=== PATIENT | female | born 1960 | race Caucasian/White ===

== ENCOUNTER 2024-03-26 09:47 | Outpatient (CLI) | payer MEDICAID, SELFPAY ==
--- NOTE | 2024-03-26 09:45 | RT.EKG_ITS ---
APPROVED REPORT Exam: Resting ECG Reason for Exam: Malignant neoplasm of central portion of left breast Patient Location: O HR:72 bpm ECG Measurements Heart Rate 72 AXIS RI 150 P 83 QRSd 93 QRS 76 QT 415 T 48 QTc 455 Conclusion Sinus rhythm...normal P axis, V-rate 50- 99 Anteroseptal infarct, age indeterminate...Q >35mS, T neg, V1-V2
== END 2024-03-26 09:48 | disposition home or self-care (01) ==
PROVIDERS: Visit Provider Physician Assistant Medical
DX: I25.2 Old myocardial infarction (principal)
CPT/HCPCS: 93005; 93010

== ENCOUNTER → 2024-04-01 01:32 | Outpatient (CLI) | payer MEDICAID, SELFPAY ==
--- NOTE | 2024-04-01 | DI.MRI_ITS ---
Exam(s) MR BRAIN WO/W EXAM: MR BRAIN WO/W CLINICAL HISTORY: CANCER OF CENTRAL PORTION OF L BREAST C50.112, diplopia, H53.2 TECHNIQUE: Multiplanar multisequence MRI of the brain was performed. Both noninfused and contrast i nfused sequences were performed. IV Contrast injected was 13 cc Dotarem. COMPARISON: No exams were available for comparison FINDINGS: CEREBRAL PARENCHYMA: There is advanced bilateral metastatic osseous disease as described below and there is intracranial e xtension bilaterally with extensive white matter edema in the left frontal and right temporal lobes. On the right side there is extensive metastatic involvement of the greater wing of the right sphenoid bone which exhibits contiguous extension into the right cavernous sinus and right basiocciput/clivus as well as encroachment upon the lateral aspect of the right orbit and right orbital apex. There is enhancement-extension into the right cranial fossa with what appears to be direct invasion of the ri ght temporal lobe and there is prominent vasogenic edema in the right temporal lobe evident, this be vasogenic edema extending up into the right parietal lobe. There is associated 4 mm leftward shift o f midline structures. There is also inferior extension into the right infratemporal fossa involving the muscles of mastication. In addition, there is a branching structure in the anterior aspect of the right temporal lobe which i s most probably a developmental venous anomaly. In the left frontal region there is a large expansile bone lesion in the left frontal bone with both out toward an inward extension into the left scalp as well as into the left frontal lobe region with both epidural and intra-axial extension. Adjacent to this in the left frontal lobe there is a 2 x 1. 8 by 2.8 cm area exhibiting fluid fluid level on T2 images consistent with hematoma. There is adjace nt extensive vasogenic edema in the left frontal lobe with significant mass packed upon the left fron roberto horn and approximately 5-6 mm shift of midline structures. There are no focal findings in the posterior fossa nor within the cara, and midbrain. PITUITARY GLAND: No mass nor parasellar abnormality. No obvious abnormality in the cavernous sinuses. FLOW VOIDS: The expected flow void are noted. No evidence of obvious aneurysm PARANASAL SINUSES: Paranasal sinuses are clear. Frontal sinuses are not developed. There is mild si gnal abnormality in the right mastoid air cells. IMPRESSION: Advanced bilateral metastatic disease both sides of the skull/brain as described above.. There is os seous metastases involving the right sphenoid bone and basiocciput with extension into the lateral as pect of the right orbit and infratemporal fossa. There is also direct contiguous involvement of the right temporal lobe with abundant vasogenic white matter edema. On the left side the expansile left frontal skull lesion exhibits both extracranial and intracranial extension including epidural and intraparenchymal contiguous brain involvement as well as an adjacent hematoma in the left frontal lobe. There is also abundant vasogenic edema on the left side. There is shift of midline structures associated with both areas of involvement bilaterally. Incidentally noted is a developmental venous anomaly in the anterior aspect of the right temporal lob e Findings discussed by phone with [facility] oncologist Dr. Markham 04/01/2024 4:50 p.m. and reports faxed. DATA REPOSITORY:
[2024-04-01 13:13] LABS: Abs Immature Grans 0.09 10^3/uL (0.0-0.06); Absolute Basophil Count 0.05 10^3/uL (0.0-0.2); Absolute Eosinophil Count 0.15 10^3/uL (0.0-0.7); Absolute Lymphocyte Count 2.22 10^3/uL (1.2-3.4); Absolute Monocyte Count 0.27 10^3/uL (0.1-0.8); Absolute Neutrophil Count 4.92 10^3/uL (1.2-6.7); Basophils % 0.6 %; Eosinophils % 1.9 %; HCT 48.5 % (36.0-46.0); HGB 16.1 g/dL (11.2-15.7); Immature Grans % 1.2 %; Lymphocytes % 28.8 %; MCH 30.3 pg (27.0-33.0); MCHC 33.2 % (32.0-36.0); MCV 91 fL (80-95); MPV 9.2 fL (8.0-11.0); Monocytes % 3.5 %; Platelet Count 340 10^3/uL (130-400); RBC 5.31 10^6/uL (3.93-5.22); RDW 15.7 % (11.7-14.6); RDW-SD 52.2 fL
[2024-04-01] MEDS: Gadoterate meglumine 20 ML SYRINGE IVP (13:22)
[2024-04-01] MEDS: Normal Saline Flush 10 ML SYR IVP (13:25)
[2024-04-01 13:28] LABS: ALT 21 U/L (14-59); AST 19 U/L (15-37); Albumin 3.7 g/dL (3.4-5.0); Alkaline Phosphatase 107 U/L (46-116); Anion Gap 7.6 mmol/L (3-11); BUN 10 mg/dL (7-18); CO2 30.4 mmol/L (21.0-32.0); CREATININE 0.9 mg/dL (0.55-1.02); Calcium 9.6 mg/dL (8.5-10.1); Chloride 103 mmol/L (98-107); Estimated GFR 71.83 (mL/min/1.73m2); Glucose 94 mg/dL (74-106); Potassium 4.2 mmol/L (3.5-5.1); Sodium 141 mmol/L (136-145)
--- NOTE | 2024-04-01 16:23 | DI.VRAD_ITS ---
Addendum created by Shani Maradiaga MD on 04/01/2024 4:26:54 PM EDT: THIS REPORT CONTAINS FINDINGS THAT MAY BE CRITICAL TO PATIENT CARE. The findings were verbally communicated by me via telephone conference with Georgi Antunez at 4:26 PM EDT on 04/01/2024. The findings were acknowledged and understood. Initial report created on 04/01/2024 4:22:56 PM EDT: PROCEDURE INFORMATION: Exam: MR Head Without and With Contrast Exam date and time: 04/01/2024 1:09 PM Age: 64 years old Clinical indication: Other: Breast CA, diplopia? TECHNIQUE: Imaging protocol: Magnetic resonance imaging of the head without and with contrast. Contrast material: DOTAREM; Contrast volume: 13 ml; Contrast route: INTRAVENOUS (IV); COMPARISON: No relevant prior studies available. FINDINGS: Brain: Mild periventricular and subcortical white matter FLAIR hyperintensity, nonspecific but consistent with chronic microvascular ischemic disease. Cerebral ventricles: No hydrocephalus. Bones: There is replacement of normal marrow signal intensity which demonstrates enhancement in the greater wing of the RIGHT sphenoid bone extending contiguously to the RIGHT cavernous sinus and RIGHT side of the clivus, as well as in the LEFT frontal bone. Findings are consistent with metastatic disease. The osseous involvement is hypointense on T2 weighted images suggesting osteoblastic metastatic disease. The lesion in the RIGHT sphenoid bone produces expansion of the bone encroaching upon the lateral aspect of the RIGHT orbit and RIGHT orbital apex as well as extending into the RIGHT middle cranial fossa with possible direct invasion of the RIGHT temporal lobe as there is marked vasogenic edema in the RIGHT temporal lobe. There is also extension inferiorly into the RIGHT infratemporal fossa involving muscles of mastication. The LEFT frontal lesion is associated with extensive extracranial soft tissue extension as well as epidural and direct LEFT frontal lobe extension. Deeper within the LEFT frontal lobe is a focal area of lobular hyperintensity on T1 weighted images measuring up to 4.5 cm in AP dimension which is heterogeneous and demonstrates fluid-fluid levels on T2 weighted images consistent with a hematoma. Deep to this hematoma is extensive vasogenic edema. This results in mass effect upon the LEFT frontal horn and approximately 5 mm midline shift of the anterior aspect of the falx. More posteriorly there is 3-4 mm leftward displacement of the septum pellucidum related to the RIGHT temporal lobe lesion. There is a branching enhancing structure in the RIGHT temporal lobe likely representing a developmental venous anomaly. Aside from encroachment upon the RIGHT orbit by the aforementioned RIGHT sphenoid bone pathology, the orbits are grossly unremarkable. Paranasal sinuses: The visualized paranasal sinuses are well-aerated. There are no air fluid levels to suggest acute sinusitis. Mastoid air cells: Mild RIGHT mastoid opacification. Orbital cavities: Unremarkable. Soft tissues: See Bones finding. IMPRESSION: 1. Osseous metastases involving the RIGHT sphenoid bone and clivus, and LEFT frontal bone with intracranial and extracranial extension with associated extensive vasogenic edema and mass effect. The RIGHT temporal lobe lesion also extends into the infratemporal fossa and RIGHT orbit. The LEFT frontal lesion is associated with a hematoma in the LEFT frontal lobe. 2. 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 Dictated and Authenticated by: Shani Maradiaga MD. Ordering:TONI Sinha MD
--- NOTE | 2024-04-01 17:42 | W.EDPROG ---
Date of service: 04/01/24 Time of Service: 17:42 Medical Decision Making I received a call from [facility], Dr. Markham, who had ordered an outpatient MRI on this patient with metastatic breast cancer. The MRI was concerning for metastatic intracranial disease. I took several screenshots of the patient's MRI report and uploaded them into the [facility] system. Will await a call back to determine whether or not the patient requires an ED assessment. 04/02 Patient did not require an ED eval last night. Quality:SDOH Health Related Social Needs: No Data to Display Discharge Plan Discharge Details Reason For Visit: [address] MARIO RODRIGUEZ Attending Provider: Ernestine Rojas Primary Care Provider: Unknown,Unknown
== END ==
PROVIDERS: Visit Provider Physician Assistant Medical
DX: C50.112 Malignant neoplasm of central portion of left female breast (principal); Z79.899 Other long term (current) drug therapy; H53.2 Diplopia
CPT/HCPCS: 00123; 70553; 80053; 85025

== ENCOUNTER 2024-05-26 10:32 | Outpatient (CLI) | payer MEDICAID, SELFPAY ==
--- NOTE | 2024-05-26 10:45 | RT.EKG_ITS ---
APPROVED REPORT Exam: Resting ECG Reason for Exam: MALIGNANT NEOPLASM OF LEFT BREAST Patient Location: O HR:83 bpm ECG Measurements Heart Rate 83 AXIS MN 151 P 84 QRSd 89 QRS 76 QT 402 T 52 QTc 473 Conclusion Sinus rhythm...normal P axis, V-rate 50- 99 Probable left atrial enlargement...P >50mS, <-0.10mV V1 Probable left ventricular hypertrophy...multiple LVH criteria
== END 2024-05-26 10:33 | disposition home or self-care (01) ==
PROVIDERS: Visit Provider Physician Assistant Medical
DX: C50.912 Malignant neoplasm of unspecified site of left female breast (principal)
CPT/HCPCS: 93005; 93010

== ENCOUNTER 2024-05-26 12:17 | Outpatient (CLI) | payer MEDICAID, SELFPAY ==
[2024-05-26 11:45] LABS: Abs Immature Grans 0.05 10^3/uL (0.0-0.06); Absolute Basophil Count 0.06 10^3/uL (0.0-0.2); Absolute Eosinophil Count 0.19 10^3/uL (0.0-0.7); Absolute Lymphocyte Count 2.27 10^3/uL (1.2-3.4); Absolute Monocyte Count 0.25 10^3/uL (0.1-0.8); Absolute Neutrophil Count 5.11 10^3/uL (1.2-6.7); Basophils % 0.8 %; Eosinophils % 2.4 %; HCT 45.3 % (36.0-46.0); HGB 14.5 g/dL (11.2-15.7); Immature Grans % 0.6 %; Lymphocytes % 28.6 %; MCV 97 fL (80-95); MPV 8.5 fL (8.0-11.0); Monocytes % 3.2 %; Neutrophils % 64.4 %; Platelet Count 447 10^3/uL (130-400); RBC 4.67 10^6/uL (3.93-5.22); RDW 19.9 % (11.7-14.6); WBC 7.93 10^3/uL (4.4-10.8)
[2024-05-26 11:58] LABS: ALT 15 U/L (14-59); AST 17 U/L (15-37); Albumin 3.1 g/dL (3.4-5.0); Alkaline Phosphatase 118 U/L (46-116); Anion Gap 9.1 mmol/L (3-11); BUN 4 mg/dL (7-18); Bilirubin, Total 0.39 mg/dL (0.2-1.0); CO2 28.9 mmol/L (21.0-32.0); CREATININE 0.7 mg/dL (0.55-1.02); Chloride 103 mmol/L (98-107); Estimated GFR 97.12 (mL/min/1.73m2); Glucose 86 mg/dL (74-106); Sodium 141 mmol/L (136-145); Total Protein 7.4 g/dL (6.4-8.2)
[2024-05-28 16:42] LABS: Cancer Ag 15-3 1011 U/mL (<30)
== END 2024-05-26 12:18 | disposition home or self-care (01) ==
LOC: LBO 12:30
PROVIDERS: Visit Provider Physician Assistant Medical
DX: C50.112 Malignant neoplasm of central portion of left female breast (principal); Z79.899 Other long term (current) drug therapy
CPT/HCPCS: 36415; 80053; 86300; 85025

== ENCOUNTER 2024-06-29 08:00 | Outpatient (CLI) | payer MEDICAID, SELFPAY ==
--- NOTE | 2024-06-29 08:15 | RT.EKG_ITS ---
APPROVED REPORT Exam: Resting ECG Reason for Exam: Malignant neoplasm of R-Breast Patient Location: O HR:72 bpm ECG Measurements Heart Rate 72 AXIS FL 146 P 83 QRSd 94 QRS 77 QT 433 T 62 QTc 474 Conclusion Sinus rhythm...normal P axis, V-rate 50- 99 Poor R wave progression
== END 2024-06-29 08:01 | disposition home or self-care (01) ==
PROVIDERS: Visit Provider Physician Assistant Medical
DX: C50.112 Malignant neoplasm of central portion of left female breast (principal)
CPT/HCPCS: 93005; 93010

== ENCOUNTER 2024-07-08 09:24 | Outpatient (CLI) | payer MEDICAID, SELFPAY ==
[2024-07-08 14:00] LABS: Abs Immature Grans 0.01 10^3/uL (0.0-0.06); HGB 14.8 g/dL (11.2-15.7); MCH 33.5 pg (27.0-33.0); MCHC 32.9 % (32.0-36.0); MCV 102 fL (80-95); Platelet Count 243 10^3/uL (130-400); RBC 4.42 10^6/uL (3.93-5.22); RDW 21.1 % (11.7-14.6); RDW-SD 78.3 fL; WBC 5.16 10^3/uL (4.4-10.8)
[2024-07-08 14:20] LABS: ALT 14 U/L (14-59); AST 15 U/L (15-37); Alkaline Phosphatase 94 U/L (46-116); Anion Gap 9.6 mmol/L (3-11); BUN 4 mg/dL (7-18); Bilirubin, Total 0.63 mg/dL (0.2-1.0); CO2 31.4 mmol/L (21.0-32.0); CREATININE 0.8 mg/dL (0.55-1.02); Calcium 9.8 mg/dL (8.5-10.1); Chloride 103 mmol/L (98-107); Estimated GFR 82.74 (mL/min/1.73m2); Glucose 125 mg/dL (74-106); Potassium 3.9 mmol/L (3.5-5.1); Sodium 144 mmol/L (136-145); Total Protein 7.7 g/dL (6.4-8.2)
[2024-07-08 14:24] LABS: Absolute Basophil Count 0.05 10^3/uL (0.0-0.2); Absolute Eosinophil Count 0.05 10^3/uL (0.0-0.7); Absolute Lymphocyte Count 1.75 10^3/uL (1.2-3.4); Absolute Monocyte Count 0.52 10^3/uL (0.1-0.8); Absolute Neutrophil Count 2.79 10^3/uL (1.2-6.7); Atypical Lymphocytes % 1 %
[2024-07-08 14:25] LABS: Anisocytosis 2+; Diff Comment Manual Differential
[2024-07-10 19:07] LABS: Cancer Ag 15-3 620 U/mL (<30)
== END 2024-07-08 09:25 | disposition home or self-care (01) ==
LOC: LBO 09:24
PROVIDERS: Visit Provider Internal Medicine
DX: C50.011 Malignant neoplasm of nipple and areola, right female breast (principal)
CPT/HCPCS: 36415; 80053; 86300; 85025

== ENCOUNTER 2024-08-31 08:46 | Outpatient (CLI) | payer MEDICAID, SELFPAY ==
--- NOTE | 2024-08-31 08:45 | RT.EKG_ITS ---
APPROVED REPORT Exam: Resting ECG Reason for Exam: palpitations Patient Location: O HR:75 bpm ECG Measurements Heart Rate 75 AXIS PA 147 P 85 QRSd 86 QRS 88 QT 425 T 78 QTc 475 Conclusion Sinus rhythm...normal P axis, V-rate 50- 99 Atrial premature complex...SV complex w/ short R-R interval Probable left atrial enlargement...P >50mS, <-0.10mV V1 Anteroseptal infarct, age indeterminate...Q >35mS, T neg, V1-V2
== END 2024-08-31 08:47 | disposition home or self-care (01) ==
PROVIDERS: Visit Provider Internal Medicine
DX: R00.2 Palpitations (principal)
CPT/HCPCS: 93005; 93010

== ENCOUNTER 2024-09-28 08:47 | Outpatient (CLI) | payer MEDICAID, SELFPAY ==
--- NOTE | 2024-09-28 08:45 | RT.EKG_ITS ---
APPROVED REPORT Exam: Resting ECG Reason for Exam: Palpitations Patient Location: O HR:80 bpm ECG Measurements Heart Rate 80 AXIS UT 146 P 85 QRSd 73 QRS 84 QT 394 T 71 QTc 455 Conclusion Sinus rhythm...normal P axis, V-rate 50- 99 Probable left atrial enlargement...P >50mS, <-0.10mV V1 Poor R wave progression
== END 2024-09-28 08:48 | disposition home or self-care (01) ==
PROVIDERS: Visit Provider Internal Medicine
DX: R00.2 Palpitations (principal)
CPT/HCPCS: 93005; 93010

== ENCOUNTER 2024-10-02 14:29 | Outpatient (CLI) | payer MEDICAID, SELFPAY ==
[2024-10-02 14:40] LABS: Abs Immature Grans 0.01 10^3/uL (0.0-0.06); Absolute Eosinophil Count 0.08 10^3/uL (0.0-0.7); Absolute Lymphocyte Count 2.63 10^3/uL (1.2-3.4); Absolute Monocyte Count 0.75 10^3/uL (0.1-0.8); Absolute Neutrophil Count 2.04 10^3/uL (1.2-6.7); Basophils % 1.8 %; Eosinophils % 1.4 %; HCT 45.1 % (36.0-46.0); HGB 15.7 g/dL (11.2-15.7); Immature Grans % 0.2 %; Lymphocytes % 46.9 %; MCH 36.6 pg (27.0-33.0); MCHC 34.8 % (32.0-36.0); MCV 105 fL (80-95); MPV 8.2 fL (8.0-11.0); Monocytes % 13.4 %; Neutrophils % 36.3 %; Platelet Count 225 10^3/uL (130-400); RBC 4.29 10^6/uL (3.93-5.22); RDW 18.6 % (11.7-14.6); RDW-SD 72.9 fL; WBC 5.61 10^3/uL (4.4-10.8)
[2024-10-02 14:52] LABS: ALT 14 U/L (14-59); AST 12 U/L (15-37); Albumin 3.7 g/dL (3.4-5.0); Alkaline Phosphatase 82 U/L (46-116); Anion Gap 7.6 mmol/L (3-11); Anisocytosis 1+; BUN 8 mg/dL (7-18); Bilirubin, Total 0.24 mg/dL (0.2-1.0); CO2 28.4 mmol/L (21.0-32.0); CREATININE 0.8 mg/dL (0.55-1.02); Calcium 9.3 mg/dL (8.5-10.1); Chloride 106 mmol/L (98-107); Diff Comment RBC Morph Reviewed; Estimated GFR 82.74 (mL/min/1.73m2); Glucose 111 mg/dL (74-106); Potassium 3.7 mmol/L (3.5-5.1); Sodium 142 mmol/L (136-145); Total Protein 7.3 g/dL (6.4-8.2)
[2024-10-05 13:44] LABS: Cancer Ag 15-3 286 U/mL (<30)
== END 2024-10-02 14:30 | disposition home or self-care (01) ==
LOC: LBO 14:30
PROVIDERS: Visit Provider Internal Medicine
DX: C50.112 Malignant neoplasm of central portion of left female breast (principal); Z79.899 Other long term (current) drug therapy
CPT/HCPCS: 36415; 80053; 86300; 85025

== ENCOUNTER 2024-10-26 08:36 | Outpatient (CLI) | payer MEDICAID, SELFPAY ==
--- NOTE | 2024-10-26 08:30 | RT.EKG_ITS ---
APPROVED REPORT Exam: Resting ECG Reason for Exam: LEFT BREAST CANCER Patient Location: O HR:80 bpm ECG Measurements Heart Rate 80 AXIS OK 148 P 88 QRSd 84 QRS 83 QT 394 T 66 QTc 455 Conclusion Sinus rhythm...normal P axis, V-rate 50- 99 Anteroseptal infarct, age indeterminate...Q >35mS, T neg, V1-V2
== END 2024-10-26 08:37 | disposition home or self-care (01) ==
PROVIDERS: Visit Provider Internal Medicine
DX: C50.112 Malignant neoplasm of central portion of left female breast (principal); Z79.899 Other long term (current) drug therapy
CPT/HCPCS: 93005; 93010

== ENCOUNTER 2024-10-26 15:36 | Outpatient (CLI) | payer MEDICAID, SELFPAY ==
[2024-10-26 09:21] LABS: HCT 41.7 % (36.0-46.0); HGB 14.3 g/dL (11.2-15.7); MCH 37.3 pg (27.0-33.0); MCHC 34.3 % (32.0-36.0); MCV 109 fL (80-95); MPV 8.1 fL (8.0-11.0); Platelet Count 271 10^3/uL (130-400); RBC 3.83 10^6/uL (3.93-5.22); RDW 16.5 % (11.7-14.6); RDW-SD 67.2 fL; WBC 4.52 10^3/uL (4.4-10.8)
[2024-10-26 09:36] LABS: Absolute Basophil Count 0.09 10^3/uL (0.0-0.2); Absolute Eosinophil Count 0.18 10^3/uL (0.0-0.7); Absolute Lymphocyte Count 2.49 10^3/uL (1.2-3.4); Absolute Monocyte Count 0.23 10^3/uL (0.1-0.8); Absolute Neutrophil Count 1.54 10^3/uL (1.2-6.7); Atypical Lymphocytes % 11 %; Diff Comment Manual Differential; Macrocytosis 2+
[2024-10-26 10:03] LABS: ALT 15 U/L (14-59); AST 12 U/L (15-37); Albumin 3.4 g/dL (3.4-5.0); Alkaline Phosphatase 71 U/L (46-116); Anion Gap 8.3 mmol/L (3-11); BUN 6 mg/dL (7-18); Bilirubin, Total 0.24 mg/dL (0.2-1.0); CO2 28.7 mmol/L (21.0-32.0); CREATININE 0.7 mg/dL (0.55-1.02); Calcium 8.7 mg/dL (8.5-10.1); Chloride 106 mmol/L (98-107); Estimated GFR 97.12 (mL/min/1.73m2); Glucose 93 mg/dL (74-106); Potassium 3.8 mmol/L (3.5-5.1); Sodium 143 mmol/L (136-145)
[2024-10-28 09:49] LABS: Cancer Ag 15-3 235 U/mL (<30)
== END 2024-10-26 15:37 | disposition home or self-care (01) ==
LOC: LBO 15:39
PROVIDERS: Visit Provider Internal Medicine
DX: C50.112 Malignant neoplasm of central portion of left female breast (principal); Z79.899 Other long term (current) drug therapy
CPT/HCPCS: 36415; 80053; 86300; 85025

== ENCOUNTER 2024-11-23 08:47 | Outpatient (CLI) | payer MEDICAID, SELFPAY ==
--- NOTE | 2024-11-23 09:00 | RT.EKG_ITS ---
APPROVED REPORT Exam: Resting ECG Reason for Exam: LEFT BREAST CA Patient Location: O HR:71 bpm ECG Measurements Heart Rate 71 AXIS ND 145 P 86 QRSd 87 QRS 82 QT 417 T 61 QTc 454 Conclusion Sinus rhythm...normal P axis, V-rate 50- 99 Probable left atrial enlargement...P >50mS, <-0.10mV V1 Anteroseptal infarct, age indeterminate...Q >35mS, T neg, V1-V2
== END 2024-11-23 08:48 | disposition home or self-care (01) ==
PROVIDERS: Visit Provider Internal Medicine
DX: C50.112 Malignant neoplasm of central portion of left female breast (principal); Z79.899 Other long term (current) drug therapy
CPT/HCPCS: 93005; 93010

== ENCOUNTER 2024-11-23 12:30 | Outpatient (CLI) | payer MEDICAID, SELFPAY ==
[2024-11-23 09:02] LABS: Abs Immature Grans 0.01 10^3/uL (0.0-0.06); Absolute Basophil Count 0.09 10^3/uL (0.0-0.2); Absolute Eosinophil Count 0.12 10^3/uL (0.0-0.7); Absolute Lymphocyte Count 2.63 10^3/uL (1.2-3.4); Absolute Monocyte Count 0.46 10^3/uL (0.1-0.8); Absolute Neutrophil Count 2.23 10^3/uL (1.2-6.7); Basophils % 1.6 %; Eosinophils % 2.2 %; HCT 43.9 % (36.0-46.0); HGB 15.4 g/dL (11.2-15.7); Immature Grans % 0.2 %; Lymphocytes % 47.5 %; MCH 37.9 pg (27.0-33.0); MCHC 35.1 % (32.0-36.0); MCV 108 fL (80-95); MPV 8.4 fL (8.0-11.0); Monocytes % 8.3 %; Neutrophils % 40.2 %; Platelet Count 262 10^3/uL (130-400); RBC 4.06 10^6/uL (3.93-5.22); RDW 15.4 % (11.7-14.6); RDW-SD 61.6 fL; WBC 5.54 10^3/uL (4.4-10.8)
[2024-11-23 09:31] LABS: ALT 13 U/L (14-59); AST 11 U/L (15-37); Albumin 3.5 g/dL (3.4-5.0); Alkaline Phosphatase 84 U/L (46-116); Anion Gap 8.7 mmol/L (3-11); BUN 9 mg/dL (7-18); CO2 27.3 mmol/L (21.0-32.0); CREATININE 0.8 mg/dL (0.55-1.02); Calcium 9.4 mg/dL (8.5-10.1); Chloride 106 mmol/L (98-107); Estimated GFR 82.74 (mL/min/1.73m2); Glucose 92 mg/dL (74-106); Potassium 4.1 mmol/L (3.5-5.1); Sodium 142 mmol/L (136-145); Total Protein 7.3 g/dL (6.4-8.2)
[2024-11-25 10:11] LABS: Cancer Ag 15-3 259 U/mL (<30)
== END 2024-11-23 12:31 | disposition home or self-care (01) ==
LOC: LBO 12:30
PROVIDERS: PCP Internal Medicine; Visit Provider Internal Medicine
DX: C50.112 Malignant neoplasm of central portion of left female breast (principal); Z79.899 Other long term (current) drug therapy
CPT/HCPCS: 36415; 80053; 86300; 85025

== ENCOUNTER 2024-11-27 00:24 | Outpatient (CLI) | payer MEDICAID, SELFPAY ==
--- NOTE | 2024-11-27 | DI.MRI_ITS ---
Exam(s) MR BRAIN WO/W EXAM: MR BRAIN WO/W CLINICAL HISTORY: LT BREAST CANCER C50.112 W/ BRAIN METS, S/P TREATMENT, RESTAGING. TECHNIQUE: Multiplanar multisequence MRI of the brain was performed. CONTRAST MATERIAL: IV Contrast: 12 ML of Dotarem contrast administered. COMPARISON: CT,PT NM PET CT STANDARD SKULL BASE TO MID-THIGH from 07/31/2024 FINDINGS: VENTRICLES AND EXTRA AXIAL SPACES: Normal in size and morphology for the patient's age. HEMORRHAGE: None. CEREBRAL PARENCHYMA: No focus of restricted diffusion to suggest acute infarct. Significant decrease seen amount of edema in the left frontal lobe and anterior right temporal lobe. Stable foci of scat tered high signal in the white matter. BRAINSTEM/CEREBELLUM: Normal. CALVARIUM: Significant interval decrease in size of previously noted left frontal skull lesion. Maxi mum thickness is now 8 millimeters compared to roughly greater than 2 cm on the prior exam. Decrease d in size and extent of lesion in the inferior right temporal fossa with extension into the soft tiss ues of the technical writing lead/mgr space. No abnormal enhancing brain lesions. Stable lesion right superior nasreen etal bone. Stable small midline right frontal bone lesion. ENHANCEMENT: No suspicious enhancement identified. VISUALIZED PARANASAL SINUSES/MASTOIDS: Minimal fluid in the bilateral inferior mastoid air cells. Orbits: Unremarkable. Pituitary: Not enlarged. Vasculature: Normal flow voids. IMPRESSION: Significant interval decrease in size of the left frontal bone metastasis. There is significant decr ease in the adjacent edema and mass effect on the left frontal lobe. Decreased size of the right temporal fossa metastatic lesion and decreased right temporal lobe edema . No new abnormalities. DATA REPOSITORY:
[2024-11-27] MEDS: Normal Saline Flush 10 ML SYR IVP (10:09)
[2024-11-27] MEDS: Gadoterate meglumine 20 ML SYRINGE 12 ML IVP (10:09)
== END 2024-11-27 00:44 ==
LOC: DI 00:24
PROVIDERS: Visit Provider Internal Medicine
DX: C50.112 Malignant neoplasm of central portion of left female breast (principal); G93.6 Cerebral edema
CPT/HCPCS: 70553

== ENCOUNTER 2024-12-21 08:47 | Outpatient (CLI) | payer MEDICAID, SELFPAY ==
--- NOTE | 2024-12-21 09:00 | RT.EKG_ITS ---
APPROVED REPORT Exam: Resting ECG Reason for Exam: MALIGNANT NEOPLASM OF LEFT FEMALE BREAST Patient Location: O HR:69 bpm ECG Measurements Heart Rate 69 AXIS SD 151 P 85 QRSd 89 QRS 83 QT 432 T 69 QTc 463 Conclusion Sinus rhythm...normal P axis, V-rate 50- 99 Probable left atrial enlargement...P >50mS, <-0.10mV V1 Anteroseptal infarct, age indeterminate...Q >35mS, T neg, V1-V2
== END 2024-12-21 08:48 | disposition home or self-care (01) ==
PROVIDERS: Visit Provider Internal Medicine
DX: C50.112 Malignant neoplasm of central portion of left female breast (principal); Z79.899 Other long term (current) drug therapy
CPT/HCPCS: 93005; 93010

== ENCOUNTER 2024-12-21 08:57 | Outpatient (CLI) | payer MEDICAID, SELFPAY | END 2024-12-21 08:58 | disposition home or self-care (01) | LOC: DI.CARD 08:58 | PROVIDERS: Visit Provider Registered Nurse | CPT/HCPCS: 93010 ==

== ENCOUNTER 2025-01-18 08:34 | Outpatient (CLI) | payer MEDICAID, SELFPAY ==
[2025-01-18 09:05] LABS: Abs Immature Grans 0.02 10^3/uL (0.0-0.06); Absolute Eosinophil Count 0.15 10^3/uL (0.0-0.7); Absolute Lymphocyte Count 2.09 10^3/uL (1.2-3.4); Absolute Neutrophil Count 2.81 10^3/uL (1.2-6.7); Basophils % 1.8 %; Eosinophils % 2.6 %; HCT 42.6 % (36.0-46.0); HGB 14.9 g/dL (11.2-15.7); Immature Grans % 0.4 %; Lymphocytes % 36.9 %; MCH 37.5 pg (27.0-33.0); MCV 107 fL (80-95); MPV 8.5 fL (8.0-11.0); Monocytes % 8.8 %; Neutrophils % 49.5 %; Platelet Count 290 10^3/uL (130-400); RBC 3.97 10^6/uL (3.93-5.22); RDW 15.3 % (11.7-14.6); RDW-SD 60.8 fL; WBC 5.67 10^3/uL (4.4-10.8)
[2025-01-18 09:53] LABS: ALT 9 U/L (14-59); AST 12 U/L (15-37); Albumin 3.5 g/dL (3.4-5.0); Alkaline Phosphatase 91 U/L (46-116); Anion Gap 8.6 mmol/L (3-11); BUN 6 mg/dL (7-18); Bilirubin, Total 0.2 mg/dL (0.2-1.0); CO2 25.4 mmol/L (21.0-32.0); CREATININE 0.6 mg/dL (0.55-1.02); Calcium 9.5 mg/dL (8.5-10.1); Chloride 105 mmol/L (98-107); Estimated GFR 100.17 (mL/min/1.73m2); Glucose 97 mg/dL (74-106); Potassium 4.2 mmol/L (3.5-5.1); Sodium 139 mmol/L (136-145); Total Protein 7.5 g/dL (6.4-8.2)
[2025-01-20 10:18] LABS: Cancer Ag 15-3 193 U/mL (<30)
== END 2025-01-18 08:35 | disposition home or self-care (01) ==
LOC: LBO 08:35
PROVIDERS: Visit Provider Internal Medicine
DX: C50.112 Malignant neoplasm of central portion of left female breast (principal); Z79.899 Other long term (current) drug therapy
CPT/HCPCS: 36415; 80053; 86300; 85025

== ENCOUNTER 2025-01-18 08:50 | Outpatient (CLI) | payer MEDICAID, SELFPAY ==
--- NOTE | 2025-01-18 08:45 | RT.EKG_ITS ---
APPROVED REPORT Exam: Resting ECG Reason for Exam: LEFT FEMALE BREAST CANCER Patient Location: O HR:70 bpm ECG Measurements Heart Rate 70 AXIS NJ 149 P 84 QRSd 82 QRS 82 QT 409 T 66 QTc 442 Conclusion Sinus rhythm...normal P axis, V-rate 50- 99 Probable left atrial enlargement...P >50mS, <-0.10mV V1 Anteroseptal infarct, age indeterminate...Q >35mS, T neg, V1-V2
== END 2025-01-18 08:51 | disposition home or self-care (01) ==
LOC: CARDOPNVT 08:50
PROVIDERS: Visit Provider Internal Medicine
DX: I51.7 Cardiomegaly (principal); I21.09 ST elevation (STEMI) myocardial infarction involving other coronary artery of anterior wall
CPT/HCPCS: 93005; 93010

== ENCOUNTER 2025-02-19 11:29 | Outpatient (CLI) | payer MEDICAID, SELFPAY ==
[2025-02-19 11:43] LABS: Abs Immature Grans 0.03 10^3/uL (0.0-0.06); Absolute Basophil Count 0.09 10^3/uL (0.0-0.2); Absolute Eosinophil Count 0.17 10^3/uL (0.0-0.7); Absolute Lymphocyte Count 2.54 10^3/uL (1.2-3.4); Absolute Monocyte Count 0.69 10^3/uL (0.1-0.8); Absolute Neutrophil Count 1.87 10^3/uL (1.2-6.7); Basophils % 1.7 %; Eosinophils % 3.2 %; HCT 46.2 % (36.0-46.0); Immature Grans % 0.6 %; Lymphocytes % 47.1 %; MCHC 34.6 % (32.0-36.0); MCV 107 fL (80-95); MPV 8.1 fL (8.0-11.0); Monocytes % 12.8 %; Neutrophils % 34.6 %; Platelet Count 233 10^3/uL (130-400); RBC 4.33 10^6/uL (3.93-5.22); RDW 15.7 % (11.7-14.6); RDW-SD 62.8 fL; WBC 5.39 10^3/uL (4.4-10.8)
[2025-02-19 11:56] LABS: Diff Comment RBC Morph Reviewed; Macrocytosis 1+
[2025-02-19 12:02] LABS: ALT 10 U/L (14-59); AST 13 U/L (15-37); Albumin 3.9 g/dL (3.4-5.0); Alkaline Phosphatase 87 U/L (46-116); Anion Gap 6.9 mmol/L (3-11); BUN 8 mg/dL (7-18); Bilirubin, Total 0.2 mg/dL (0.2-1.0); CO2 31.1 mmol/L (21.0-32.0); CREATININE 0.6 mg/dL (0.55-1.02); Chloride 102 mmol/L (98-107); Estimated GFR 100.17 (mL/min/1.73m2); Glucose 97 mg/dL (74-106); Potassium 3.9 mmol/L (3.5-5.1); Sodium 140 mmol/L (136-145); Total Protein 7.7 g/dL (6.4-8.2)
[2025-02-23 16:27] LABS: Cancer Ag 15-3 203 U/mL (<30)
== END 2025-02-19 11:30 | disposition home or self-care (01) ==
LOC: LBO 11:29
PROVIDERS: Visit Provider Internal Medicine
DX: C50.112 Malignant neoplasm of central portion of left female breast (principal); Z79.899 Other long term (current) drug therapy
CPT/HCPCS: 36415; 80053; 86300; 85025

== ENCOUNTER 2025-03-22 10:53 | Outpatient (CLI) | payer MEDICAID, SELFPAY ==
[2025-03-22 09:07] LABS: Abs Immature Grans 0.03 10^3/uL (0.0-0.06); Absolute Basophil Count 0.11 10^3/uL (0.0-0.2); Absolute Eosinophil Count 0.14 10^3/uL (0.0-0.7); Absolute Lymphocyte Count 2.95 10^3/uL (1.2-3.4); Absolute Monocyte Count 0.91 10^3/uL (0.1-0.8); Absolute Neutrophil Count 2.68 10^3/uL (1.2-6.7); Basophils % 1.6 %; Eosinophils % 2.1 %; HCT 44.2 % (36.0-46.0); HGB 15.7 g/dL (11.2-15.7); Immature Grans % 0.4 %; Lymphocytes % 43.3 %; MCH 37.6 pg (27.0-33.0); MCHC 35.5 % (32.0-36.0); MCV 106 fL (80-95); MPV 8.4 fL (8.0-11.0); Monocytes % 13.3 %; Neutrophils % 39.3 %; Platelet Count 249 10^3/uL (130-400); RBC 4.17 10^6/uL (3.93-5.22); RDW 15.1 % (11.7-14.6); RDW-SD 60.1 fL; WBC 6.82 10^3/uL (4.4-10.8)
[2025-03-22 09:48] LABS: ALT 14 U/L (14-59); AST 16 U/L (15-37); Albumin 3.7 g/dL (3.4-5.0); Alkaline Phosphatase 85 U/L (46-116); Anion Gap 11.7 mmol/L (3-11); BUN 5 mg/dL (7-18); Bilirubin, Total 0.3 mg/dL (0.2-1.0); CO2 25.3 mmol/L (21.0-32.0); CREATININE 0.4 mg/dL (0.55-1.02); Calcium 9.1 mg/dL (8.5-10.1); Chloride 104 mmol/L (98-107); Estimated GFR 110.45 (mL/min/1.73m2); Glucose 80 mg/dL (74-106); Potassium 3.9 mmol/L (3.5-5.1); Sodium 141 mmol/L (136-145); Total Protein 7.1 g/dL (6.4-8.2)
[2025-03-24 15:10] LABS: Cancer Ag 15-3 170 U/mL (<30)
== END 2025-03-22 10:54 | disposition home or self-care (01) ==
LOC: LBO 10:54
PROVIDERS: PCP Family Medicine; Visit Provider Internal Medicine
DX: C50.112 Malignant neoplasm of central portion of left female breast (principal); Z79.899 Other long term (current) drug therapy
CPT/HCPCS: 36415; 80053; 86300; 85025

== ENCOUNTER 2025-05-14 12:39 | Outpatient (CLI) | payer MEDICAID, SELFPAY ==
[2025-05-18 11:41] LABS: Cancer Ag 15-3 158 U/mL (<30)
== END 2025-05-14 12:40 | disposition home or self-care (01) ==
LOC: LBO 12:39
PROVIDERS: PCP Family Medicine; Visit Provider Internal Medicine
DX: C50.112 Malignant neoplasm of central portion of left female breast (principal)
CPT/HCPCS: 36415; 86300

== ENCOUNTER 2025-06-11 03:44 | Outpatient (CLI) | payer MEDICAID, SELFPAY ==
--- NOTE | 2025-06-11 | DI.MRI_ITS ---
Exam(s) MR BRAIN WO/W EXAM: MR BRAIN WO/W CLINICAL HISTORY: LT BREAST CA C50.112 BRAIN METS, MRI 10/2024 TECHNIQUE: Multiplanar multisequence MRI of the brain was performed. Both noninfused and contrast infused sequences were performed. IV Contrast injected was 12 cc Dotarem. MR MR BRAIN WO/W from 11/27/2024 FINDINGS: CALVARIUM/BRAIN: There has been further decrease in size of the left frontal bone lesion. There is slight increase in the amount of FLAIR bright white matters frontal lobes signal subjacent to this skull lesion and adjacent to the nearby frontal horn of the left lateral ventricle. I suspect that this is possibly related to radiation none. There is no new mass effect related to this white matter signal and no ring enhancing lesions. No evidence of restricted diffusion at this level nor elsewhere in the brain. With respect of the previously described right middle cranial fossa-anterior right temporal lobe region, this appears similar to the MRI of 11/27/2024. There is only mild remaining edema in the anterior aspect of the right temporal lobe, similar to 11/27/2024. With respect to the previously described high right parietal skull finding, it is unchanged 11/27/2024. There is no adjacent brain edema. There is no evidence of intracranial hemorrhage, new mass effect, nor shift of midline structures. The ventricles are not enlarged or shifted. There are no new ring-enhancing lesions in the brain and no new abnormal meningeal enhancement. There are no new findings in the cerebellar hemispheres. Mild increased signal in both sides of the cara noted, slightly more so than previous. No findings in the midbrain and thalami. Previously described small foci of FLAIR bright signal abnormality in the left periventricular subcortical white matter is again noted. There is some increase in the amount of FLAIR bright signal abnormality in the left frontal lobe DWI: No areas of restricted diffusion to suggest acute ischemic event. SWI: No microhemorrhages evident. PITUITARY GLAND: No mass nor parasellar abnormality. No obvious abnormality in the cavernous sinuses. FLOW VOIDS: The expected flow void are noted. No evidence of obvious aneurysm nor obvious vascular malformation. PARANASAL SINUSES: The visualized paranasal sinuses appear unremarkable. Bilateral mastoid air cell effusions are unchanged. ORBITS: No new findings. IMPRESSION: 1. Compared to the prior MRI scan of 11/27/2024 there has been slight further decrease in the size of the left frontal bone skull lesion. There is some increased FLAIR bright signal in the subjacent left frontal white matter which is not associated with mass effect and is probably related to radiation treatment. There are no ring enhancing lesions in this region nor elsewhere in the brain.. 2. The right middle cranial fossa findings remain stable when compared to MRI of 11/27/2024. 3. The lesion in the high right parietal bone remains unchanged. There is no brain edema in this region. 4. There are no new ring-enhancing lesions in the brain. DATA REPOSITORY:
[2025-06-11] MEDS: Normal Saline - Diluent 50 ML VIAL IJ (09:26)
[2025-06-11] MEDS: Gadoterate meglumine 20 ML VIAL IVP (09:26)
== END 2025-06-11 04:04 ==
PROVIDERS: PCP Family Medicine; Visit Provider Internal Medicine
DX: C50.112 Malignant neoplasm of central portion of left female breast (principal)
CPT/HCPCS: 70553

== ENCOUNTER 2025-08-23 09:52 | Outpatient (CLI) | payer MEDICAID, SELFPAY ==
[2025-08-23 10:10] LABS: Abs Immature Grans 0.03 10^3/uL (0.0-0.06); HCT 40.7 % (36.0-46.0); HGB 14.6 g/dL (11.2-15.7); MCH 36.3 pg (27.0-33.0); MCHC 35.9 % (32.0-36.0); MCV 101 fL (80-95); MPV 8.6 fL (8.0-11.0); Platelet Count 300 10^3/uL (130-400); RBC 4.02 10^6/uL (3.93-5.22); RDW 13.7 % (11.7-14.6); RDW-SD 51.5 fL; WBC 5.10 10^3/uL (4.4-10.8)
[2025-08-23 10:39] LABS: RBC Morphology Normal
[2025-08-23 11:22] LABS: ALT 12 U/L (10-49); AST 19 U/L (<34); Albumin 4.1 g/dL (3.4-5.0); Alkaline Phosphatase 91 U/L (46-116); Anion Gap 7.6 mmol/L (3-11); BUN 6 mg/dL (9-23); Bilirubin, Total 0.30 mg/dL (0.2-1.2); CO2 29.4 mmol/L (20.0-31.0); Calcium 9.2 mg/dL (8.3-10.6); Chloride 102 mmol/L (98-107); Glucose 87 mg/dL (74-106); Potassium 3.9 mmol/L (3.5-5.1); Sodium 139 mmol/L (136-145); Total Protein 6.4 g/dL (5.7-8.2)
[2025-08-24 17:36] LABS: Cancer Ag 15-3 122 U/mL (<30)
== END 2025-08-23 09:53 | disposition home or self-care (01) ==
LOC: LBO 09:57
PROVIDERS: PCP Family Medicine; Visit Provider Internal Medicine
DX: C50.112 Malignant neoplasm of central portion of left female breast (principal)
CPT/HCPCS: 36415; 80053; 86300; 85025